=== PATIENT | male | born 1950 | race Caucasian/White ===

== ENCOUNTER → 2017-11-01 09:18 | Outpatient (CLI) | payer OTHER ==
--- NOTE | ~2017-11-01 | EC ---
PATIENT:HECTOR HUITRON DATE OF SERVICE: 11/01/17 SEX: M MEDICAL RECORD: [id number] DATE OF : 46 [facility] AGE OF PATIENT: 66 ADMISSION DATE: 11/01/17 REFERRING PHYSICIAN: INTERPRETING PHYSICIAN: TIN WARREN MD ECHOCARDIOGRAM REPORT ECHO CHARGES 4 ECHO COMPLETE CLINICAL DIAGNOSIS: CP/PALPITATIONS ECHOCARDIOGRAPHIC MEASUREMENTS (adult normal given) AC root (d.<3.7cm) 3.2 cm LV Septum d (<1.2 cm> 1.4 cm Valve Excursion 1.9 cm LV Septum (systole) 2.0 cm Left Atria (s.<4.0cm> 3.6 cm LVPW d(<1.2cm) 1.2 cm RV (d.<2.3cm) 2.5 cm LVPW (sytole) 2.0 cm LV diastole(<5.6CM) 5.2 cm MV E-F(>70mm/sec) cm LV systole 3.0 cm LVOT Diameter 1.9 cm MV exc.(>10mm) cm Est.ejection fraction (50-75%) % Pericardial Effusion N DOPPLER: LVIT cm/sec A 44.0 cm/sec E 72.0 cm/sec LA cm/sec RVSP 20.2 mmHg LVOT 118 cm/sec AOP1/2T m/s Asc. Ao 159 cm/sec RVOT 61.0 cm/sec RA cm/sec PA 89.0 cm/sec AV Gradient Peak 10.2 mmHg AV Mean 5.0 mmHg AV Area 1.9 cm MV Gradient Peak 2.6 mmHg MV Mean 0.78 mmHg MV Area cm COMMENTS: Equity Director: Khari NORIEGAOE Planning Analyst: Doug Warren TAPE# PACS DATE OF SERVICE: 11/01/2017 PROCEDURE: Transthoracic echocardiogram. FINDINGS: 1. The patient has mild concentric left ventricular hypertrophy, inflow characteristics are normal. There are no obvious regional wall motion abnormalities. The ejection fraction is 55%. 2. The left atrium is normal size, normal function. 3. The aortic valve mildly sclerotic without stenosis, otherwise normal. ECHOCARDIOGRAM REPORT [id number] HECTOR HUITRON 4. The mitral valve has normal structure and function. No obvious mitral regurgitation. 5. Tricuspid valve is normal. 6. The pericardium is normal. 7. The right ventricle is normal size, normal function. 8. The right atrium is normal size, normal function. CONCLUSION: A normal echocardiogram for the patient's stated age with the exception of mild left ventricular hypertrophy. TRANSINT:[id number] Voice Confirmation ID: [id number] DOCUMENT ID: [id number] TIN WARREN MD at 1020 CC: [id number] DICTATION DATE: 11/04/17 112 COMPUTER FIELD TECHNICIAN: 11/04/17 1358 DEP CLI 11/01/17 [id number] [place] [address]
[~2017-11-01 09:18] MED LIST: ACCUPRIL10 MG PO; ARICEPT10 MG PO; GEMFIBROZIL600 MG PO; GLUCOPHAGE500 MG PO; HUMALOG 30100 UNITS/ SC; LANTUS INSULIN10 ML SC; SYNTHROID125 MCG PO
[2017-11-12 07:47] VITALS: BMI 30.3
== END | disposition home or self-care (01) ==
LOC: D.ECHO 09:18
DX: R07.9 Chest pain, unspecified (principal); R00.2 Palpitations

== ENCOUNTER 2017-11-12 07:15 | Outpatient (CLI) | payer OTHER ==
[~2017-11-12] VITALS: Ht 170.2 cm; Wt 87.7 kg
--- NOTE | ~2017-11-12 | HEMODYNAMI ---
PATIENT:HECTOR HUITRON MEDICAL RECORD: [id number] : 46 LOCATION:[facility] ADMISSION DATE: 11/12/17 Generatedon:11/12/20178:58 Patient name: HECTOR HUITRON Patient #: [id number] SSN: : 1950 Date of study: 11/12/2017 Page: Of Hemodynamic Procedure Report Patient Data Patient Demographics Procedure consent was obtained First Name: HECTOR Gender: Male Last Name: TOMY : 1950 Middle Initial: MISAEL Age: 66 year(s) Patient #: [id number] Race: Unknown Additional ID: [id number] Contact details Address: [address] State: [place] City: [place] Zip code: [address] Past Medical History Allergies Allergen Reaction Date Comments Reported Other allergy 11/12/2017 Amoxicillin Admission Admission Data Admission Date: 11/12/2017 Admission Time: 7:15 Admit Source: Other Procedure Procedure Types Cath Procedure Diagnostic Procedure LHC LH w/Coronaries Miscellaneous Procedures Moderate Sedation up to 30 minutes Procedure Description Procedure Date Procedure Date: 11/12/2017 Procedure Start Time: 8:42 Procedure End Time: 8:57 Procedure Staff Name Function Jessica Griffin RN Nurse Chiki Clemens MD Performing Physician Carolina Harding RT Scrub Roya Will RT Monitor Procedure Data Cath Procedure Fluoroscopy Diagnostic fluoroscopy Total fluoroscopy Time: 1.7 time: 1.7 min min Diagnostic fluoroscopy Total fluoroscopy dose: 253 dose: 253 mGy mGy Contrast Material Contrast Material Type Amount (ml) Isovue 300 40 Entry Location Entry Primary Successful Side Size Upsize Upsize Entry Closure Succes sful Closure Location (Fr) 1 (Fr) 2 (Fr) Remarks Device Remarks Femoral Right 5 Fr Exoseal artery Estimated blood loss: 5 ml Diagnostic catheters Device Type Used For End Catheter Placement MULTIPACK JL 4.0 5Fr Left Coronary catheter Angiography MULTIPACK 3DRC 5Fr Right Coronary catheter Angiography MULTIPACK Pigtail 5 Fr LV Angiography catheter Procedure Complications No complications Procedure Medications Medication Administration Route Dosage Oxygen NC 2 l/min Lidocaine 2% added to field 20 Heparin Flush Bag added to field 2 bags (1000units/500ml NS) 0.9% NaCl I.V. 100 ml/hr Versed I.V. 1 mg Fentanyl I.V. 50 mcg Hemodynamics Rest Heart Rate: 55 (bpm) Pressure Samples Time Site Value (mmHg) Purpose Heart Use Rate(bpm) 8:51 LV 122/6,22 EDP 64 Gradients Valve Time Site Site Mean SEP/DFP Peak To Heart Use 1 2 (mmHg) (sec/min) Peak Rate (mmHg) (bpm) Aortic 8:52 LV AO 62 Snapshots Pre Cath Intra NCS Post Cath Vital Signs Time Heart Resp SPO2 etCO2 NIBP (mmHg) Rhythm Pain Sedation Rate (ipm) (%) (mmHg) Status Level (bpm) 8:26:30 60 17 97 22.6 143/85(112) NSR 0 (11) 10(A) , No pain 8:31:09 55 18 98 27.1 146/87(121) NSR 0 (11) 10(A) , No pain 8:35:49 55 16 100 25.6 136/78(114) NSR 0 (11) 10(A) , No pain 8:40:28 57 22 100 30.2 140/73(109) NSR 0 (11) 10(A) , No pain 8:45:06 56 17 99 30.2 121/68(95) NSR 0 (11) 9(A) , No pain 8:49:43 63 16 98 31.6 123/68(92) NSR 0 (11) 9(A) , No pain 8:54:17 62 20 98 33.2 128/76(106) NSR 0 (11) 10(A) , No pain Medications Time Medication Route Dose Verified Delivered Reason Notes Effec tiveness by by 8:29:06 Oxygen NC 2 Chiki Buffie used for l/min Jayleen Griffin RN procedure 8:29:14 Lidocaine 2% added 20ml Chiki Chiki for local to vial Jayleen Clemens MD anesthetic field 8:29:21 Heparin Flush added 2 Chiki Chiki used for Bag to bags Jayleen Clemens MD procedure (1000units/500ml field LEE NS) 8:29:30 0.9% NaCl I.V. 100 Chiki Buffie Per ml/hr Jayleen Griffin RN physician 8:40:58 Versed I.V. 1 mg Chiki Buffie for Jayleen Griffin RN sedation 8:41:04 Fentanyl I.V. 50 Chiki Buffie for [facility] [place] Jayleen Griffin RN sedation Procedure Log Time Note 8:14:54 Informed consent obtained and on chart 8:16:37 Admit Source: Other 8:16:38 Diagnostic Cath status Elective 8:16:40 Jessica Griffin RN sent for patient. Start room use. 8:16:41 Time tracking: Regular hours 8:16:44 Plan of Care:Hemodynamics will remain stable., Cardiac rhythm will remain stable., Comfort level will be maintained., Respiratory function will remain adequate., Patient/ family verbilizes understanding of procedure., Procedure tolerated without complication., Recovers from procedure without complications.. 8:17:02 H&P Date Dictated: 11/07/2017 Within 30 days and on chart., H&P Addendum completed by physician on day of procedure. (MUST COMPLETE FOR ALL OUTPATIENTS). 8:18:02 Patient allergic to Other allergyAmoxicillin 8:20:10 Patient received from Pre/Post Procedure Room to CCL 1 Alert and oriented. Tansferred to table in Supine position. 8:25:36 Vital chart was started 8:27:17 Warm blankets applied, and princess hugger turned on for patient comfort. 8:27:18 Correct patient and procedure confirmed by team. 8:27:19 ECG and BP/O2 sat monitors applied to patient. 8:27:21 Full Disclosure recording started 8:27:42 Pre-procedure instructions explained to patient. 8:27:43 Pre-op teaching completed and patient verbalized understanding. 8:27:44 Family in waiting room. 8:27:46 Patient NPO since Midnight. 8:27:48 Is the patient allergic to Iodine/contrast media? No. 8:27:52 Is patient on blood thinner?Yes 8:27:55 ACC The patient was administered the following blood thiners within the last 24 hours: ACCPlavix 8:28:02 Patient diabetic? Yes. 8:28:05 If diabetic: On Metformin? Yes 8:28:12 If on Metformin: Last Dose? 11/10/2017 8:28:16 Previous problem with sedation/anesthesia? No ? 8:28:17 Snore? No 8:28:28 Sleep apnea? No 8:28:29 Opens mouth fully? Yes 8:28:29 Deviated septum? No 8:28:30 Sticks out tongue? Yes 8:28:34 Airway obstruction? No ? 8:28:37 Dentures? Yes In 8:29:06 Oxygen 2 l/min NC was administered by Jessica Griffin RN; used for procedure; 8:29:14 Lidocaine 2% 20ml vial added to field was administered by Chiki Clemens MD; for local anesthetic; 8:29:21 Heparin Flush Bag (1000units/500ml NS) 2 bags added to field was administered by Chiki Clemens MD; used for procedure; 8:29:30 0.9% NaCl 100 ml/hr I.V. was administered by Jessica Griffin RN; Per physician; 8:29:37 Pre procedure: right dorsailis pedis pulse 2+ Normal; easily identifiable; not easily obliterated 8:29:39 Modified Neto's test Ulnar > 7 seconds. 8:29:41 Patient pain scale 0/10 ?. 8:29:47 IV patent on arrival in left hand with 0.9% NaCl at [facility]. 8:29:49 Lab results completed and on chart. 8:29:53 Alarms reviewed by R. N. 8:29:53 Right groin area was prepped with chlora-prep and draped in sterile fashion 8:29:54 Sharps counted by scrub and verified by R.N. 8:29:57 Use device set Femoral Dx 8:29:58 ACIST Syringe (75205) opened to sterile field. 8:29:59 Medline Cath Pack ([id number]) opened to sterile field. 8:29:59 Bag Decanter (2002S) opened to sterile field. 8:30:00 DIAGNOSTIC WIRE .035 260cm J wire (901363) opened to sterile field. 8:30:00 SHEATH 5FR Fl[place] ([id number]) opened to sterile field. 8:30:01 ACIST Hand Control (81154) opened to sterile field. 8:30:02 DIAGNOSTIC Multipack 5Fr catheter set ([id number]) opened to sterile field. 8:30:02 ACIST Manifold (03259) opened to sterile field. 8:30:03 Tegaderm 4 x 4 (1626W) opened to sterile field. 8:30:04 MICROPUNCTURE 4FR Cook ([id number]) opened to sterile field. 8:32:41 Final Timeout: patient, procedure, and site verified with staff and physician. All members of the team are in agreement. 8:32:42 Right groin site verified by team. 8:32:45 Physical assessment completed. ASA score P 2 - A patient with mild systemic disease as per Chiki Clemens MD. 8:32:47 Sedation plan: IV Moderate Sedation Medication:Versed, Fentanyl 8:35:30 Baseline sample Acquired. 8:39:29 Zero performed for pressure channel P1 8:40:58 Versed 1 mg I.V. was administered by Jessica Griffin RN; for sedation; 8:41:04 Fentanyl 50 mcg I.V. was administered by Jessica Griffin RN; for sedation; 8:42:37 Procedure started. 8:42:40 Local anesthetic to right femoral artery with Lidocaine 2% by Chiki Clemens MD.INITIAL ACCESS ONLY 8:44:29 Access obtained with 4Fr micropunture. 8:44:33 A 5 Fr sheath was inserted into the Right Femoral artery 8:46:18 A MULTIPACK JL 4.0 5Fr catheter was advanced over the wire and used for Left Coronary Angiography. 8:47:50 Catheter exchanged over wire. 8:48:02 A MULTIPACK 3DRC 5Fr catheter was advanced over the wire and used for Right Coronary Angiography. 8:49:29 Catheter exchanged over wire. 8:49:51 A MULTIPACK Pigtail 5 Fr catheter was advanced over the wire and used for LV Angiography. 8:51:45 LV gram done using MCKINNEY 8:51:54 Injector settings: Ml/sec: 12, Volume: 8, 8:52:01 LV hemodynamics recorded. 8:52:21 Catheter removed. 8:52:30 Sheath removed intact; hemostasis achieved with Exoseal to the Right Femoral artery. 8:52:33 Procedure ended.(Physican Out) 8:52:46 Fluoroscopy time 01.70 minutes. 8:52:48 Fluoroscopy dose: 253 mGy 8:52:48 Flurop Dose total: 253 8:52:52 Contrast amount:Isovue 300 40ml. 8:53:03 Insertion/operative site no bleeding no hematoma. 8:53:06 Post-op/insertion site Right Femoral artery dressed using a 4 x 4 and Tegaderm. 8:53:10 Post right femoral artery:stable, clean and dry 8:53:12 Post Procedure Pulses reassessed and unchanged 8:53:15 Post-procedure physical assessment completed. ASA score P 2 - A patient with mild systemic disease as per Chiki Clemens MD. 8:53:18 Post procedure rhythm: unchanged. 8:53:20 Estimated blood loss: 5 ml 8:53:22 Post procedure instruction explained to patient.Patient verbalizes understanding. 8:53:23 Patient needs reinforcement of post procedure teaching. 8:53:38 Procedure type changed to Cath procedure, Diagnostic procedure, LHC, LHC w/Coronaries, Miscellaneous Procedures, Moderate Sedation up to 30 minutes 8:53:43 Procedure Complication : No complications 8:53:45 See physician's report for complete and final results. 8:53:47 Procedure and supply charges have been captured, reviewed, submitted and are correct. 8:54:34 EXOSEAL 5Fr (EX500) opened to sterile field. 8:56:45 Vital chart was stopped 8:56:47 Report given to Pre/Post Procedure Room. 8:56:50 Patient transfered to Pre/Post Procedure Room with Stretcher. 8:57:01 Full Disclosure recording stopped 8:57:01 Procedure ended. 8:57:05 End room use (Document Last) Device Usage Item Name Manufacture Quantity Catalog Hospital Part Current Minimal Lot# / Number Charge Number Stock Stock Serial# Code ACIST Syringe Acist 1 22818 078509 297698 [id number] 20 (28491) [employer] Bag Decanter Microtek 1 625183 11335 772431 5 () Medical Inc. Medline Cath Cardinal 1 [id number] 717378 23644 058423 5 [facility] ([id number]) SHEATH 5FR Terumo 1 [id number] 054976 551371 128218 40 Flovilla (QQK004) DIAGNOSTIC [facility] 1 626534 657216 160993 946271 30 WIRE .035 260cm J wire (869866) ACIST Hand Acist 1 93913 057041 498763 172366 5 Control Medical (11230) Systems Inc ACIST Acist 1 11471 957108 701787 745124 5 [facility] (75461) Systems Inc DIAGNOSTIC Cardinal 1 [id number] 695745 99877 734448 30 Multipack 5Fr Health catheter set (IF4344) Tegaderm 4 x 3M 1 1626W 704944 984777 544204 5 4 (1626W) MICROPUNCTURE Cook Medical 1 [id number] 824245 536311 309973 5 4FR Cook (W88265) MULTIPACK JL Cardinal 1 018269 5 4.0 5Fr Health catheter MULTIPACK Cardinal 1 [id number] 5 3DRC 5Fr Health catheter MULTIPACK Cardinal 1 [id number] 5 Pigtail 5 Fr Health catheter EXOSEAL 5Fr Cardinal 1 EX500 490574 956460 403084 10 (EX500) Health Signature Audit Randle Stage Time Signature Unsigned Intra-Procedure 11/12/2017 Roya 8:58:42 AM Counts RT(R) Signatures Monitor : Roya Signature : Counts RT Date : Time : [address] [address]
[2017-11-12] MEDS ORDERED: ACCUPRIL10 MG PO (07:27)
[2017-11-12] MEDS ORDERED: ARICEPT10 MG PO (07:27)
[2017-11-12] MEDS ORDERED: GEMFIBROZIL600 MG PO (07:27)
[2017-11-12] MEDS ORDERED: LANTUS INSULIN10 ML SC ×2 (07:28→07:29)
[2017-11-12] MEDS ORDERED: HUMALOG 30100 UNITS/ SC (07:29)
[2017-11-12] MEDS ORDERED: GLUCOPHAGE500 MG PO (07:29)
[2017-11-12] MEDS ORDERED: SYNTHROID125 MCG PO (07:30)
[2017-11-12 07:47] VITALS: BP 139/72; Ht 170.2 cm; Wt 87.7 kg
[2017-11-12 08:07] LABS: BASOPHILS 0.2 % (0-2); EOSINOPHILS 0.9 % (0-7); HEMATOCRIT 40.7 % (42.0-54.0); HEMOGLOBIN 14.2 g/dL (13.5-17.5); IMMATURE GRANULOCYTES 0.4 % (0-5); LYMPHOCYTES 22.6 % (15-50); MCH 31.6 pg (26.0-34.0); MCHC 34.9 g/dL (31.0-37.0); MCV 90.6 fL (80.0-100.0); MEAN PLATELET VOLUME 9.7 fL (7.4-10.4); MONOCYTES 7.6 % (2-11); NEUTROPHILS 68.3 % (40-80); PLATELET COUNT 230 10x3/uL (130-400); RBC 4.49 10x6/uL (4.20-6.10); RDW 11.9 % (11.5-14.5); WBC 5.4 10x3/uL (4.8-10.8)
[2017-11-12 08:18] LABS: CALC OSMOLALITY 283 mosm/kg (275-300); CALCIUM 9.2 mg/dL (8.5-10.1); CARBON DIOXIDE 26.7 mmol/L (21.0-32.0); CHLORIDE - SERUM 103 mmol/L (98-107); POTASSIUM - SERUM 4.1 mmol/L (3.5-5.1); SODIUM 139 mmol/L (136-145); UREA NITROGEN 19 mg/dL (7-18); eGFR NON AFRICAN AMERICAN 79 mL/min (90-120)
[2017-11-12 08:21] LABS: GLUCOSE 175 mg/dL (74-106)
== END 2017-11-12 12:00 | disposition home or self-care (01) ==
LOC: D.CATH 07:15
PROVIDERS: Internal Medicine Cardiovascular Disease
DX: I25.10 Atherosclerotic heart disease of native coronary artery without angina pectoris (principal); Z01.812 Encounter for preprocedural laboratory examination

== ENCOUNTER → 2018-06-05 16:28 | Outpatient (CLI) | payer OTHER ==
[2017-11-12 07:47] VITALS: BMI 30.3
[2018-06-05 17:46] LABS: CHOL - HDL RATIO 3.2 ratio (2.3-4.9)
== END | disposition home or self-care (01) ==
LOC: D.LABREF 16:28
PROVIDERS: Internal Medicine Cardiovascular Disease
DX: E78.5 Hyperlipidemia, unspecified (principal)